=== PATIENT | female | born 1955 | race Caucasian/White ===

== ENCOUNTER 2018-10-26 18:49 | Outpatient (REF) | payer OTHER, SELFPAY ==
--- NOTE | 2018-10-26 16:00 | PAPFT_PTH ---
PATIENT: Margaret Carmichael LOC: [facility] U#:[id number] AGE/SX: 62/F ROOM: RE10/26/[address]: MAXWELL Newsome : 1955 BED: DIS: 10/26/2018 SPEC #: [id number] RECD: 10/27/18 12:55 STATUS: GIA HUFFMAN #: [id number] RAQUEL: 10/26/18 16:[address]: Danielle Carney DEPT: [facility] Cytology RECD BY: Lianne Grajeda Tissues: 1 - CX/ENDOCX FOR PAP SMEARS Procedures: PAP THIN PREP/[facility] Screening HPV DNA PROBE Comments: [id number]
== END 2018-10-26 19:09 ==
LOC: LBN 18:49
PROVIDERS: PCP Nurse Practitioner Family; Visit Provider Nurse Practitioner Family
DX: Z12.4 Encounter for screening for malignant neoplasm of cervix (principal); Z11.51 Encounter for screening for human papillomavirus (HPV)
CPT/HCPCS: 88142; 87624

== ENCOUNTER 2020-08-04 16:14 | Outpatient (REF) | payer OTHER, SELFPAY ==
--- NOTE | 2020-08-04 14:00 | PAPFT_PTH ---
PATIENT: Margaret Carmichael LOC: [facility] U#:[id number] AGE/SX: 64/F ROOM: RE08/04/[address]: MAXWELL Newsome : 1955 BED: DIS: 08/04/2020 SPEC #: [id number] RECD: 08/07/20 12:59 STATUS: GIA REMary #: [id number] RAQUEL: 08/04/20 14:[address]: Danielle Carney DEPT: [facility] Cytology RECD BY: Lianne Grajeda Tissues: 1 - CX/ENDOCX FOR PAP SMEARS Procedures: PAP THIN PREP/[facility] Screening HPV DNA PROBE Comments: [id number]
== END 2020-08-04 16:34 ==
LOC: LBN 16:14
PROVIDERS: PCP Nurse Practitioner Family; Visit Provider Nurse Practitioner Family
DX: Z12.4 Encounter for screening for malignant neoplasm of cervix (principal); Z11.51 Encounter for screening for human papillomavirus (HPV)
CPT/HCPCS: 88142; 87624

== ENCOUNTER 2021-01-25 02:10 | Outpatient (CLI) | payer MEDICARE, OTHER, SELFPAY ==
--- NOTE | 2021-01-25 08:15 | DI.DEXA_ITS ---
Exam(s) XR DEXA BONE DENSITY W/WO JAZMIN EXAM: XR DEXA BONE DENSITY W/WO JAZMIN CLINICAL HISTORY: SCREENING FOR OSTEOPOROSIS IN POSTMENOPAUSAL WOMAN,Z78.0 TECHNIQUE: [employer] C densitometer COMPARISON: No exams were available for comparison FINDINGS: Lateral view of the thoracic and lumbar spine shows no evidence of compression fractures. Bone mineral density measurements of the lumbar spine correspond to a total T-score of -2.2, in the osteopenic range. Bone mineral density measurements of the left hip correspond to a total T-score of negative 1.4. Th e femoral neck T-score is -2.6, consistent with osteoporosis. . The left forearm bone mineral density measurements correspond to a T-score of the distal 3rd of -2.6, consistent with osteoporosis. . IMPRESSION: Osteopenia of the lumbar spine. Osteoporosis of the left hip and left forearm.
== END 2021-01-25 02:30 ==
PROVIDERS: PCP Nurse Practitioner Family; Visit Provider Nurse Practitioner Family
DX: M85.88 Other specified disorders of bone density and structure, other site (principal); M81.0 Age-related osteoporosis without current pathological fracture; Z78.0 Asymptomatic menopausal state
CPT/HCPCS: 77080

== ENCOUNTER 2021-02-19 01:17 | Outpatient (CLI) | payer MEDICARE, OTHER, SELFPAY ==
--- NOTE | 2021-02-19 14:38 | DI.MAMMO_ITS ---
Exam(s) MG MAMMO SCREENING 60 MIN DUR EXAM: MG MAMMO SCREENING 60 MIN DUR CLINICAL HISTORY: breast cancer screening, IMPLANTS, Z12.39 TECHNIQUE: Mammograms were interpreted according to the usual protocol including computer analysis w ith CAD system, tomosynthesis and C-view imaging. COMPARISON: FINDINGS: There are bilateral breast implants. There are bilateral lobulated mass is of similar density adjace nt to the implants highly suggestive of implant rupture. The findings are more prominent than on [place] or examination of May 2015, at which time there was a probable implant rupture on the right. Additional breast masses are not seen, nor are there visible clumped microcalcifications, however a b reast mass could be obscured by the implant rupture. Additional evaluation with breast MRI recommend ed. IMPRESSION: BI-RADS Category 0 - Assessment Incomplete: Need additional imaging evaluation Breast Density - Category B - Scattered areas of fibroglandular density
== END 2021-02-19 01:37 ==
PROVIDERS: PCP Nurse Practitioner Family; Visit Provider Nurse Practitioner Family
DX: Z12.31 Encounter for screening mammogram for malignant neoplasm of breast (principal); Z98.82 Breast implant status; R92.8 Other abnormal and inconclusive findings on diagnostic imaging of breast
CPT/HCPCS: 77063; 77067